=== PATIENT | female | born 1980 | race Caucasian/White ===

== ENCOUNTER 2017-08-22 00:51 | Emergency (ER) | payer BC ==
[~2017-08-22] VITALS: Ht 160 cm; Wt 70.3 kg
[2017-08-22] MEDS ORDERED: ONDANSETRON HCL 4 MG TABLET (01:56)
[2017-08-22] MEDS ORDERED: ETHINYL ESTRADIOL (01:56)
[2017-08-22] MEDS ORDERED: LEVONORGESTREL (01:56)
[2017-08-22] MEDS ORDERED: ONDANSETRON 4 MG/2 ML VIAL IV ONE (02:30)
[2017-08-22] MEDS ORDERED: IV NORMAL SALINE 1000 ML BAG IV ONE (02:30)
[2017-08-22] MEDS ORDERED: ONDANSETRON 4 MG/2 ML VIAL ONE (02:56)
--- NOTE | 2017-08-22 03:02 | NUR ---
Pt ambulated to room with steady gait. Pt c/o N/V and upper abd cramping. Pt seen by Dr. Cruz. IV established, labs drawn and sent. Pt medicated for n/v, will monitor for effects of medication. Fluid bolus infusing freely to gravity. Pt resting in position of comfort for self. Family at bedside.
[2017-08-22 03:21] LABS: EOSINOPHILS % (AUTO) 0.2 % (0.0-7.0); HEMATOCRIT 39.3 % (37-47); HEMOGLOBIN 13.7 G/DL (12.0-16.0); LYMPHOCYTES # (AUTO) 1.3 K/UL (0.8-4.8); LYMPHOCYTES % (AUTO) 6.8 % (20.5-51.5); MEAN CORPUSCULAR HEMOGLOBIN 31.9 UUG (27.0-31.0); MEAN CORPUSCULAR HGB CONC 35 g/dL (32.0-37.0); MEAN CORPUSCULAR VOLUME 91.4 FL (81.0-99.0); MONOCYTES # (AUTO) 0.5 K/UL (0.1-1.30); MONOCYTES % (AUTO) 2.7 % (0.0-11.0); NEUTROPHILS # (AUTO) 17.8 K/UL (1.8-8.9); NEUTROPHILS % (AUTO) 90.3 % (38.5-71.5); PLATELET COUNT (AUTO) 250 K/UL (150-450); WHITE BLOOD COUNT (AUTO) 19.5 K/UL (4.0-11.2)
[2017-08-22 03:38] LABS: BILIRUBIN,DIRECT 0.1 mg/dL (0.0-0.2); BILIRUBIN,TOTAL 0.5 mg/dL (0.2-1.0); CREATININE 0.9 mg/dL (0.6-1.3); POTASSIUM 3.7 mmol/L (3.5-5.1); TOTAL PROTEIN, SERUM 7.2 g/dL (6.4-8.2)
--- NOTE | 2017-08-22 03:59 | NUR ---
Fluid bolus completed, pt sts she is feeling better. Awaiting re-evaluation and disposition
--- NOTE | 2017-08-22 04:33 | NUR ---
Pt stable for discharge per Dr. Cruz. IV dc'd, catheter intact. Drsg applied. No problems noted to site. Pt given ACI. Pt verbalized understanding of dc instructions. Pt ambulated out of er with steady gait and ride home.
[2017-08-22 04:35] VITALS: BP 105/69
== END 2017-08-22 04:35 | disposition home or self-care (01) ==
LOC: ER 00:58
DX: K85.90 Acute pancreatitis without necrosis or infection, unspecified (principal)
CPT/HCPCS: 36415; 83690; 84703; 85025; A4663; J2405; J7030

== ENCOUNTER 2018-07-06 11:00 | Emergency (ER) | payer BC ==
[~2018-07-06] VITALS: Ht 160 cm; Wt 68.0 kg
[~2018-07-06 11:00] MED LIST: ETHINYL ESTRADIOL; LEVONORGESTREL; ONDANSETRON HCL 4 MG TABLET
--- NOTE | 2018-07-06 11:05 | NUR ---
ADMIT A FEMALE PT IN RM 2A, AMBULATORY FROM HOME WITH A C/O N/V 24HRS AGO [employer].
--- NOTE | 2018-07-06 11:15 | NUR ---
SEEN AND EXAMINED BY DR MAYES WITH NEW ORDERS.
[2018-07-06] MEDS ORDERED: ONDANSETRON 4 MG/2 ML VIAL IV ONE (11:30)
[2018-07-06] MEDS ORDERED: IV NORMAL SALINE 1000 ML BAG IV ONE (11:30)
--- NOTE | 2018-07-06 11:30 | NUR ---
STARTED AN IV LINE ON THE LEFT FA G20 AND IVF NS INFUSING ORDERED.
--- NOTE | 2018-07-06 11:35 | NUR ---
ZOFRAN 4MG SLOW IVP GIVEN FOR C/O NAUSEA ORDERED.
[2018-07-06] MEDS ORDERED: ONDANSETRON 4 MG/2 ML VIAL ONE (11:39)
[2018-07-06 11:50] LABS: BASOPHILS # (AUTO) 0.1 K/uL (0.0-8.0); BASOPHILS % (AUTO) 0.4 % (0.0-2.0); HEMATOCRIT 41.3 % (31.2-41.9); HEMOGLOBIN 14.3 g/dL (10.9-14.3); LYMPHOCYTES % (AUTO) 6.6 % (20.5-51.5); MEAN CORPUSCULAR HEMOGLOBIN 32.2 uug (24.7-32.8); MEAN CORPUSCULAR HGB CONC 35 g/dL (32.3-35.6); MEAN CORPUSCULAR VOLUME 93.1 fL (75.5-95.3); MONOCYTES # (AUTO) 0.3 K/uL (2.0-10.0); NEUTROPHILS # (AUTO) 14.3 K/uL (1.8-8.9); PLATELET COUNT (AUTO) 243 K/uL (179-408); RED BLOOD CELL COUNT(AUTO) 4.44 MIL/uL (3.63-4.92); WHITE BLOOD COUNT (AUTO) 15.7 K/uL (3.8-11.8)
--- NOTE | 2018-07-06 11:50 | NUR ---
LABS DRAWN ORDERED.
[2018-07-06 11:57] LABS: CREATININE 0.8 mg/dL (0.6-1.3); POTASSIUM 3.7 mmol/L (3.5-5.1)
[2018-07-06 12:03] LABS: BILIRUBIN,DIRECT 0.1 mg/dL (0.0-0.2); BILIRUBIN,TOTAL 0.5 mg/dL (0.2-1.0); TOTAL PROTEIN, SERUM 7.8 g/dL (6.4-8.2)
[2018-07-06 12:09] LABS: *BILIRUBIN,URIN NEGATIVE (NEGATIVE); *BLOOD, URINE Trace-intact (NEGATIVE); *CLARITY,URINE CLEAR (CLEAR); *COLOR,URINE YELLOW (YELLOW); *KETONES,URINE 1+ (NEGATIVE); *PROTEIN,URINE TRACE (NEGATIVE); *UROBILINOGEN,URINE 0.2 E.U./dl (NORMAL); LEUKOCYTE ESTERASE ,URINE 1+ (NEGATIVE); NITRITE, URINE NEGATIVE (NEGATIVE); PH,URINE 5.5 (5.0-8.0); UGLUCOSE NEGATIVE (NEGATIVE)
[2018-07-06 12:12] LABS: BACTERIA,URINE MODERATE /HPF (NONE SEEN); SQUAMOUS EPITHELIAL CELL,UR MODERATE /HPF (NONE SEEN)
--- NOTE | 2018-07-06 13:05 | NUR ---
IVF INFUSION IS DONE.IV LINE DISCONTINUED. DISCHARGE INSTRUCTION AND PRESCRIPTION GIVEN WITH GOOD UNDERSTAND. DISCHARGED HOME AMBULATORY. CONDITION IS STABLE.
[2018-07-06 13:18] VITALS: BP 128/75
== END 2018-07-06 13:05 | disposition home or self-care (01) ==
LOC: ER 11:00
DX: R11.2 Nausea with vomiting, unspecified (principal)
CPT/HCPCS: 36415; 80048; 80076; 81001; 83690; 84703; 85025; 96361; 96374; 99284; A4663; J2405; J7030